=== PATIENT | male | born 2000 | race Hispanic/Latino ===

== ENCOUNTER 2021-08-22 11:40 | Emergency (ER) | payer SELFPAY ==
[2021-08-22 12:32] VITALS: BP 131/86
--- NOTE | 2021-08-22 13:03 | XRay Report ---
CHEST PA AND LATERAL VIEWS INDICATION: Chest Pain. COMPARISON: None. FINDINGS: Support devices: None. Heart: Within normal limits. Lungs/Pleura: No acute pulmonary or pleural findings. IMPRESSION: 1. No acute findings. Signer Name: Dorian Tellez MD Signed: 08/22/2021 12:58 PM Workstation Name: [id number]
[2021-08-22 13:47] LABS: Hematocrit 42.5 % (35.5-45.6); Hemoglobin 14.1 gm/dl (11.8-15.2); Mean Corpuscular HGB Conc 33 % (32-34); Mean Corpuscular Volume 102 fl (84-94); Platelet Count 166 K/mm3 (140-440); Red Blood Count 4.17 M/mm3 (3.65-5.03); Red Cell Distribution Width 13.8 % (13.2-15.2)
[2021-08-22 14:06] LABS: Alanine Aminotransferase 87 units/L (7-56); Albumin 4.7 g/dL (3.9-5); BUN/Creatinine Ratio 14; Blood Urea Nitrogen 11 mg/dL (9-20); Calcium 9.6 mg/dL (8.4-10.2); Hemolysis Index 2
[2021-08-22 15:50] LABS: Basophils % (Manual) 0 % (0.0-1.8); Macrocytosis 1+; Total Cells Counted 100
[2021-08-22 15:51] LABS: Anisocytosis 1+; Platelet Estimate Consistent w Auto
[2021-08-22] MEDS ORDERED: KETOROLAC 10 MG TAB PO ONE (21:21)
--- NOTE | 2021-08-22 21:33 | Emergency Department Report ---
ED Chest Pain HPI - General Chief Complaint: Chest Pain Stated Complaint: CHEST PAIN Time Seen by Provider: 08/22/21 21:00 Source: patient Mode of arrival: Ambulatory Limitations: No Limitations - History of Present Illness Initial Comments: 21 yo white male with no pmh presents to ed for evaluation of chest pain. He states that he did alot of ecstacy pills on Friday and pain started some time after that. He states that pain is intermittent, worse with inspiration, non radiating, and reproducible. He denies sob, n/v, dizziness, and diaphoresis. MD Complaint: chest pain -: Sudden, days(s) (4) Onset: associated with drug use Pain Location: left chest Pain Radiation: none Severity: severe Severity scale (0 -10): 8 Quality: aching Consistency: intermittent re: denies: nausea, vomting, diaphoresis, dyspnea, sense of impending doom Other Symptoms: denies: cough, fever, syncope, rash, acid taste in mouth, leg swelling, palpitations, burping Treatments Prior to Arrival: none Aspirin use within the Past 7 Days: (0) No - Related Data Allergies Allergy/AdvReac Type Severity Reaction Status Date / Time No Known Allergies Allergy Verified 08/22/21 12:32 Heart Score - HEART Score History: Slightly suspicious EKG: Non-specific Age: < 45 Risk factors: 1-2 risk factors Troponin: < normal limit HEART Score: 2 - EKG Read Time Time EKG Completed: 12:37 EKG Read Time: 12:40 - Critical Actions Critical Actions: 0-3 pts:0.9-1.7%risk of adverse cardiac event.Candidate for discharge ED Review of Systems ROS: Stated complaint: CHEST PAIN Other details as noted in HPI Comment: All other systems reviewed and negative Constitutional: denies: chills, fever ENT: denies: congestion Respiratory: denies: shortness of breath Cardiovascular: chest pain. denies: palpitations Gastrointestinal: denies: abdominal pain, nausea, vomiting, diarrhea, hematemesis, melena, hematochezia Musculoskeletal: denies: back pain Neurological: denies: headache, weakness Psychiatric: denies: anxiety, homicidal thoughts, suicidal thoughts ED Past Medical Hx - Past Medical History Previous Medical History?: No ED Physical Exam - General Limitations: No Limitations General appearance: alert, in no apparent distress - Head Head exam: Present: atraumatic, normocephalic - Eye Eye exam: Present: normal appearance. Absent: conjunctival injection - Neck Neck exam: Present: normal inspection. Absent: lymphadenopathy - Respiratory Respiratory exam: Present: normal lung sounds bilaterally, chest wall tenderness. Absent: respiratory distress, wheezes, rales, rhonchi, stridor - Cardiovascular Cardiovascular Exam: Present: regular rate, normal heart sounds - GI/Abdominal GI/Abdominal exam: Present: soft, normal bowel sounds. Absent: distended, tenderness, guarding, rebound, rigid - Extremities Exam Extremities exam: Present: normal inspection, normal capillary refill. Absent: tenderness, pedal edema, joint swelling, calf tenderness - Back Exam Back exam: Present: normal inspection. Absent: CVA tenderness (R), CVA tenderness (L), vertebral tenderness - Neurological Exam Neurological exam: Present: alert, oriented X3 - Psychiatric Psychiatric exam: Present: normal affect, normal mood - Skin Skin exam: Present: warm, dry, intact, normal color ED Course Vital Signs 08/22/21 08/22/21 12:30 22:02 Temperature 98.3 F Pulse Rate 90 Respiratory 14 14 Rate Blood Pressure 131/86 O2 Sat by Pulse 100 Oximetry KATYA score - Katya Score Age > 65: (0) No Aspirin use within the Past 7 Days: (0) No 3 or more CAD Risk Factors: (0) No 2 or more Angina events in past 24 hrs: (0) No Known CAD with more than 50% Stenosis: (0) No Elevated Cardiac Markers: (0) No ST Deviation Greater than 0.5mm: (0) No KATYA Score: 0 ED Medical Decision Making - Lab Data Result diagrams: 08/22/21 13:15 08/22/21 13:15 - EKG Data EKG shows normal: sinus rhythm Rate: normal - EKG Data Interpretation: no acute changes - Radiology Data Radiology results: report reviewed, image reviewed CXR: FINDINGS: Support devices: None. Heart: Within normal limits. Lungs/Pleura: No acute pulmonary or pleural findings. IMPRESSION: 1. No acute findings. - Medical Decision Making 21 yo white male with no pmh presents to ed for evaluation of chest pain. He states that he did alot of ecstacy pills on Friday and pain started some time after that. He states that pain is intermittent, worse with inspiration, non radiating, and reproducible. He denies sob, n/v, dizziness, and diaphoresis. EKG without any acute ischemic changes noted, troponin wnl, cxr without any acute abnormalities noted, and physical exam consistent with chest wall tenderness. Low suspicion for ACS. Patient advised to follow up with pcp or cardiology for further evaluation and management and return to ED as needed. HE verbalizes understanding of and agreement with plan of care. Critical care attestation.: If time is entered above; I have spent that time in minutes in the direct care of this critically ill patient, excluding procedure time. ED Disposition Clinical Impression: Chest wall tenderness Disposition: 01 HOME / SELF CARE / HOMELESS Is pt being admited?: No Does the pt Need Aspirin: No Condition: Stable Instructions: Chest Wall Pain, [id number] Additional Instructions: Follow-up with primary care provider or cardiology for any worsening symptoms. Return to the emergency department as needed. Referrals: RENZO FRANK MD [Staff Physician] - 3-5 Days AARON GAGE MD [Staff Physician] - 3-5 Days Forms: Work/School Release Form(ED) Time of Disposition: 21:32
--- NOTE | 2021-08-23 10:21 | Electrocardiograph Report ---
[facility] Test Date: 2021-08-22 Test Time: 12:37:51 Pat Name: CORINNE MATHUR Department: Room: Gender: M Heel Splitter: GP : 2000 Requested By: ED DOC Order Number: [id number] Reading MD: Terrell Hu Measurements Intervals [place] Rate: 57 P: 65 DC: 158 QRS: 64 QRSD: 108 T: 61 QT: 452 QTc: 440 Interpretive Statements Sinus bradycardia ST elev, probable normal early repol pattern No previous ECG available for comparison Electronically Signed On 08-23-2021 10:20:33 EDT by Terrell Hu
== END 2021-08-22 22:11 | disposition home or self-care (01) ==
LOC: ED 11:40
DX: R07.89 Other chest pain (principal)
CPT/HCPCS: 36415; 71046; 80053; 84484; 85007; 85025; 93005; 99284